=== PATIENT | female | born 1955 | race Caucasian/White ===

== ENCOUNTER 2016-06-16 07:45 | Outpatient (CLI) | payer BC | END 2016-06-16 18:29 | disposition home or self-care (01) | LOC: SMA 07:45 | PROVIDERS: ATTEND Obstetrics & Gynecology Gynecology | DX: Z12.31 Encounter for screening mammogram for malignant neoplasm of breast (principal) | CPT/HCPCS: 77067; G0202 ==

== ENCOUNTER 2016-07-21 12:24 | Outpatient (CLI) | payer BC | END 2016-07-21 19:20 | disposition home or self-care (01) | LOC: SUS 12:24 | PROVIDERS: ATTEND Obstetrics & Gynecology Gynecology | DX: R92.2 Inconclusive mammogram (principal) | CPT/HCPCS: 76641 ==

== ENCOUNTER 2017-09-21 08:23 | Outpatient (CLI) | payer BC | END 2017-09-21 19:36 | disposition home or self-care (01) | LOC: SMA 08:23 | PROVIDERS: ATTEND Obstetrics & Gynecology Gynecology | DX: Z12.31 Encounter for screening mammogram for malignant neoplasm of breast (principal) | CPT/HCPCS: 77067 ==

== ENCOUNTER 2017-11-27 08:30 | Outpatient (CLI) | payer BC | END 2017-11-27 21:14 | disposition home or self-care (01) | LOC: SUS 08:30 | PROVIDERS: ATTEND Obstetrics & Gynecology Gynecology | DX: R92.2 Inconclusive mammogram (principal) | CPT/HCPCS: 76641 ==

== ENCOUNTER 2018-10-09 08:30 | Outpatient (CLI) | payer BC | END 2018-10-09 14:44 | disposition home or self-care (01) | LOC: SMA 08:30 | PROVIDERS: ATTEND Obstetrics & Gynecology Gynecology | DX: Z12.31 Encounter for screening mammogram for malignant neoplasm of breast (principal) | CPT/HCPCS: 77067 ==

== ENCOUNTER 2018-11-19 08:13 | Outpatient (CLI) | payer BC | END 2018-11-20 13:43 | disposition home or self-care (01) | LOC: SUS 08:13 | PROVIDERS: ATTEND Obstetrics & Gynecology Gynecology | DX: R92.2 Inconclusive mammogram (principal) | CPT/HCPCS: 76641 ==

== ENCOUNTER 2019-12-23 08:53 | Outpatient (CLI) | payer OTHER, MEDICARE | END 2019-12-23 20:13 | disposition home or self-care (01) | LOC: SMA 08:53 | PROVIDERS: ATTEND Obstetrics & Gynecology Gynecology | DX: Z12.31 Encounter for screening mammogram for malignant neoplasm of breast (principal) | CPT/HCPCS: 77067 ==

== ENCOUNTER 2020-02-10 08:52 | Outpatient (CLI) | payer OTHER, MEDICARE | END 2020-02-10 19:01 | disposition home or self-care (01) | LOC: SUS 08:52 | PROVIDERS: ATTEND Obstetrics & Gynecology Gynecology | DX: R92.2 Inconclusive mammogram (principal) | CPT/HCPCS: 76641 ==

== ENCOUNTER 2021-02-23 10:12 | Outpatient (CLI) | payer OTHER, MEDICARE | END 2021-02-23 19:54 | disposition home or self-care (01) | LOC: SMA 10:12 | PROVIDERS: ATTEND Obstetrics & Gynecology Gynecology | DX: Z12.31 Encounter for screening mammogram for malignant neoplasm of breast (principal) | CPT/HCPCS: 77067 ==

== ENCOUNTER 2022-03-24 10:06 | Outpatient (CLI) | payer OTHER, MEDICARE | END 2022-03-24 19:00 | disposition home or self-care (01) | LOC: SMA 10:06 | PROVIDERS: ATTEND Obstetrics & Gynecology Gynecology | DX: Z12.31 Encounter for screening mammogram for malignant neoplasm of breast (principal); N64.89 Other specified disorders of breast | CPT/HCPCS: 76641; 77067 ==

== ENCOUNTER 2023-03-30 08:23 | Outpatient (CLI) | payer OTHER, MEDICARE | END 2023-03-30 18:11 | disposition home or self-care (01) | LOC: SMA 08:23 | PROVIDERS: ATTEND Obstetrics & Gynecology Gynecology | DX: Z12.31 Encounter for screening mammogram for malignant neoplasm of breast (principal) | CPT/HCPCS: 77067 ==

== ENCOUNTER 2024-02-09 12:03 | Emergency (ER) | payer OTHER, MEDICARE ==
[~2024-02-09] VITALS: Ht 157.5 cm; Wt 69.4 kg
[2024-02-09 12:16] VITALS: BP_SYST 160; PULSE 63; RESP 20; TEMP 98.3; O2SAT 98
[2024-02-09 13:04] LABS: BASOPHILS % (AUTO) 0.6 % (0.0-2.0); EOSINOPHILS % (AUTO) 0.6 % (0.0-4.0); HEMATOCRIT 42.6 % (36-48); HEMOGLOBIN 14.4 g/dL (12.0-16.0); LYMPHOCYTES # (AUTO) 1.8 K/uL (1.0-5.5); LYMPHOCYTES % (AUTO) 40.2 % (20.5-51.5); MEAN CORPUSCULAR HEMOGLOBIN 31 pg (27-31); MEAN CORPUSCULAR HGB CONC 34 % (32-36); MEAN CORPUSCULAR VOLUME 91 fL (79.0-98.0); MONOCYTES # (AUTO) 0.4 K/uL (0.0-1.0); MONOCYTES % (AUTO) 9.6 % (1.7-9.3); NEUTROPHILS # (AUTO) 2.2 K/uL (1.8-7.7); PLATELET COUNT (AUTO) 314 K/uL (130-430); RED BLOOD CELL COUNT(AUTO) 4.71 MIL/uL (4.2-6.2); RED CELL DISTRIBUTION WIDTH 13.3 % (9.0-15.0); WHITE BLOOD COUNT (AUTO) 4.4 K/uL (4.8-10.8)
[2024-02-09 13:14] LABS: PROTHROMBIN TIME 10.3 SECS (9.5-12.5)
[2024-02-09 13:16] LABS: ALBUMIN 4.5 g/dL (3.4-4.8); BILIRUBIN,DIRECT 0.1 mg/dL (0.0-0.3); CALCIUM 9.4 mg/dL (8.4-11.0); CREATININE 0.88 mg/dL (0.55-1.30); POTASSIUM 4.4 mmol/L (3.5-5.1); TOTAL BILIRUBIN 0.6 mg/dL (0.0-1.0); TOTAL PROTEIN, SERUM 7.8 g/dL (6.4-8.3)
[2024-02-09] MEDS ORDERED: HYDR-3927 PO (14:54)
[2024-02-09] MEDS ORDERED: IBUP-1969 PO (14:54)
[2024-02-09 15:11] VITALS: BP_SYST 160; PULSE 63; RESP 20; TEMP 98.3; O2SAT 98
== END 2024-02-09 15:13 | disposition home or self-care (01) ==
LOC: SED 12:03
DX: M79.604 Pain in right leg (principal); E03.9 Hypothyroidism, unspecified
CPT/HCPCS: 36415; 73590; 80048; 80076; 85025; 85610; 85730; 93971; 99284